=== PATIENT | male | born 1955 | race Two or more races ===

== ENCOUNTER → 2024-10-21 | Outpatient (CLI) | payer MEDICARE, SELFPAY ==
[2024-10-21 13:03] LABS: Urea Breath Test Negative (Negative)
== END | disposition home or self-care (01) ==
PROVIDERS: PCP Family Medicine; Referring Provider Specialist; Visit Provider Specialist
DX: Z01.89 Encounter for other specified special examinations (principal)
CPT/HCPCS: 83013; 83014